=== PATIENT | male | born 1975 | race African-American/Black ===

== ENCOUNTER 2017-08-31 11:15 | Emergency (ER) | payer SELFPAY ==
[~2017-08-31] VITALS: Ht 175.3 cm; Wt 66.0 kg
[~2017-08-31 11:15] MED LIST: ZOFR4TAB3 SL
[2017-08-31 11:21] VITALS: BP 180/111; PULSE 74; RESP 22; TEMP 98; O2SAT 97
--- NOTE | 2017-08-31 11:29 | PD ---
Physical Exam Date Seen by Provider: Aug 31, 2017 Time Seen by Provider: 11:25 Narrative 42-year-old Afro-[place] male with history of sickle cell anemia presents to emergency Department from home with reported tonic-clonic seizure. Patient has no history of seizure before. Patient is complaining of chest and back pain. He is postictal. He denies any recent illness. He denies any drug use other than marijuana. He did state that he drank about a half a pint of alcohol last evening but normally doesn't drink every day. Pain is currently 8 out of 10. He complains of chest shortness of breath. He is currently on no medications. He has no known drug allergies. Data Data Last Documented VS Vital Signs Date Time Temp Pulse Resp B/P (MAP) Pulse Ox O2 Delivery O2 Flow Rate FiO2 08/31/17 11:21 98.0 74 22 180/111 (134) 97 MDM Medical Record Reviewed: Yes Supervised Visit with SATURNINO: Yes Narrative Course Patient appears postictal with vital signs are stable. Patient taken directly to the medical bed. Condition: Stable Calvin Benítez Aug 31, 2017 11:29
[2017-08-31 11:41] VITALS: BP 174/101; PULSE 84; RESP 20; O2SAT 98
--- NOTE | 2017-08-31 11:47 | PD ---
HPI Chief Complaint: Seizure Time Seen by Provider: 11:33 Travel History International Travel<30 days: No Contact w/Intl Traveler<30days: No Traveled to known affect area: No History of Present Illness HPI UNSURE TO WHAT OCCURRED. PATIENT'S NEPHEW BROUGHT HIM IN, APPARENTLY HE WAS HAVING SOME TONIC CLONIC ACTIVITY, WAS CONFUSED AND NOW IS BACK TO NORMAL UPON ARRIVING AT ER BED. PATIENT C/O "TIRED" AND "SORE CHEST AND BACK"...FEELS LIKE "SORE MUSCLES", AND RATES IT 2/, DENIES PCP: CAN'T RECALL BUT HIS OLD DOCTOR HAS RETIRED PMHX: SICKLE CELL SOCIAL HX: MARIJUANA USE, AND OCCASIONAL EOTH USE (DENIES DAILY ETOH USE) PFSH Past Medical History Anemia: Yes (sickle) Diminished Hearing: No Sickle Cell Disease: Yes ?: Not Past Surgical History Surgical History: No Previous Surgery Social History Alcohol Use: Yes (beer daily) Tobacco Use: Yes (2 PACKS DAILY X 20 YEARS) Substance Use: Yes (POT EVERY DAY) Allergies-Medications (Allergen,Severity, Reaction): Coded Allergies: No Known Allergies (Verified , 08/31/17) Reported Meds & Prescriptions Reported Meds & Active Scripts Active Review of Systems General / Constitutional: No: Fever Eyes: No: Visual changes HENT: No: Headaches Cardiovascular: Positive: Chest Pain or Discomfort Respiratory: No: Shortness of Breath Gastrointestinal: No: Abdominal Pain Genitourinary: No: Dysuria Musculoskeletal: Positive: Pain Skin: No Rash Neurologic: No: Weakness Psychiatric: No: Depression Endocrine: No: Polydipsia Hematologic/Lymphatic: No: Easy Bruising Physical Exam Narrative GENERAL: SKIN: Warm and dry. HEAD: Atraumatic. Normocephalic. EYES: Pupils equal and round. No scleral icterus. No injection or drainage. ENT: No nasal bleeding or discharge. Mucous membranes pink and moist. NECK: Trachea midline. No JVD. CARDIOVASCULAR: Regular rate and rhythm. RESPIRATORY: No accessory muscle use. Clear to auscultation. Breath sounds equal bilaterally. GASTROINTESTINAL: Abdomen soft, non-tender, nondistended. MUSCULOSKELETAL: Extremities without clubbing, cyanosis, or edema. No obvious deformities. NEUROLOGICAL: Awake and alert. No obvious cranial nerve deficits. Motor grossly within normal limits. Five out of 5 muscle strength in the arms and legs. Normal speech. PSYCHIATRIC: Appropriate mood and affect; insight and judgment normal. Data Data Last Documented VS Vital Signs Date Time Temp Pulse Resp B/P (MAP) Pulse Ox O2 Delivery O2 Flow Rate FiO2 08/31/17 11:41 84 20 174/101 (125) 98 Room Air 08/31/17 11:21 98.0 Orders Orders Electrocardiogram (08/31/17 11:38) Complete Blood Count With Diff (08/31/17 11:38) Comprehensive Metabolic Panel (08/31/17 11:38) Troponin I (08/31/17 11:38) B-Type Natriuretic Peptide (08/31/17 11:38) Prothrombin Time / Inr (Pt) (08/31/17 11:38) Act Partial Throm Time (Ptt) (08/31/17 11:38) Lipase (08/31/17 11:38) Urinalysis - C+S If Indicated (08/31/17 11:38) Thyroid Stimulating Hormone (08/31/17 11:38) Ct Brain W/O Iv Contrast(Rout) (08/31/17 11:38) Drug Screen, Random Urine (08/31/17 11:38) Alcohol (Ethanol) (08/31/17 11:38) Salicylates (Aspirin) (08/31/17 11:38) Tylenol (Acetaminophen) (08/31/17 11:38) Ldh Serum (08/31/17 13:16) Labs Laboratory Tests Test 08/31/17 11:45 08/31/17 12:44 White Blood Count 10.7 TH/MM3 Red Blood Count 5.87 MIL/MM3 Hemoglobin 18.8 GM/DL Hematocrit 54.1 % Mean Corpuscular Volume 92.2 FL Mean Corpuscular Hemoglobin 32.0 PG Mean Corpuscular Hemoglobin Concent 34.7 % Red Cell Distribution Width 13.5 % Platelet Count 256 TH/MM3 Mean Platelet Volume 8.9 FL Neutrophils (%) (Auto) 78.3 % Lymphocytes (%) (Auto) 13.5 % Monocytes (%) (Auto) 7.6 % Eosinophils (%) (Auto) 0.2 % Basophils (%) (Auto) 0.4 % Neutrophils # (Auto) 8.4 TH/MM3 Lymphocytes # (Auto) 1.4 TH/MM3 Monocytes # (Auto) 0.8 TH/MM3 Eosinophils # (Auto) 0.0 TH/MM3 Basophils # (Auto) 0.0 TH/MM3 CBC Comment DIFF FINAL Differential Comment Prothrombin Time 9.8 SEC Prothromb Time International Ratio 0.9 RATIO Activated Partial Thromboplast Time 30.5 SEC Blood Urea Nitrogen 14 MG/DL Creatinine 1.39 MG/DL Random Glucose 98 MG/DL Total Protein 9.5 GM/DL Albumin 4.9 GM/DL Calcium Level 9.8 MG/DL Alkaline Phosphatase 123 U/L Aspartate Amino Transf (AST/SGOT) 27 U/L Alanine Aminotransferase (ALT/SGPT) 31 U/L Total Bilirubin 1.4 MG/DL Sodium Level 137 MEQ/L Potassium Level 3.9 MEQ/L Chloride Level 106 MEQ/L Carbon Dioxide Level 21.7 MEQ/L Anion Gap 9 MEQ/L Estimat Glomerular Filtration Rate 69 ML/MIN Lactate Dehydrogenase 195 U/L Troponin I LESS THAN 0.02 NG/ML B-Type Natriuretic Peptide LESS THAN 2 PG/ML Lipase 73 U/L Thyroid Stimulating Hormone 3rd Gen 1.570 uIU/ML Salicylates Level 6.2 MG/DL Acetaminophen Level LESS THAN 2.0 MCG/ML Ethyl Alcohol Level LESS THAN 3 MG/DL Urine Color LIGHT-YELLOW Urine Turbidity CLEAR Urine pH 5.5 Urine Specific [place] 1.004 Urine Protein NEG mg/dL Urine Glucose (UA) NEG mg/dL Urine Ketones NEG mg/dL Urine Occult Blood NEG Urine Nitrite NEG Urine Bilirubin NEG Urine Urobilinogen LESS THAN 2.0 MG/DL Urine Leukocyte Esterase NEG Urine WBC LESS THAN 1 /hpf Urine Squamous Epithelial Cells 1 /hpf Microscopic Urinalysis Comment CULT NOT INDICATED Urine Opiates Screen NEG Urine Barbiturates Screen NEG Urine Amphetamines Screen NEG Urine Benzodiazepines Screen NEG Urine Cocaine Screen POS Urine Cannabinoids Screen NEG [facility] Medical Decision Making Medical Screen Exam Complete: Yes Emergency Medical Condition: Yes Medical Record Reviewed: Yes Interpretation(s) NSR 67, RV DELAY, LVH, Differential Diagnosis ?NEW ONSET SEIZURE V SYNCOPE V WITHDRAWAL SYNDROME V ELECTROLYTE ABNL V STEMI V PANCREATITIS V PNA V PTX Narrative Course PATIENT CT HEAD NEG FOR ICH, CXR NEG FOR PNA/PTX. EKG DID NOT SHOW ANY STEMI, AND FIRST SET OF TROPONIN WAS NEGATIVE....PATIENT STATES THAT HE HAS A HISTORY OF SICKLE CELL, I QUESTION THE VALIDITY OF THAT STATEMENT SINCE HEMOGLOBIN IS 18 , LDH WAS NORMAL, AND NO SCHISTIOCYTES OR ABNORMAL MICROSCOPIC EXAMINATION ON CBC. PATIENT WAS POSITIVE FOR COCAINE AND THAT MAY EXPLAIN PART OF HIS PRESENTING SYMPTOMS INCLUDING UP TO SEIZURE (IF IT ACTUALLY HAPPENED, THE MORE I ASKED NEPHEW THE LESS ACTUAL FIRST HAND WITNESSING I GOT) Diagnosis Primary Impression: COCAINE INDUCED SEIZURE Patient Instructions: Cocaine Abuse (ED), General Instructions Disposition: 01 DISCHARGE HOME Condition: Stable Leon Degroot MD Aug 31, 2017 11:47
[2017-08-31 12:17] LABS: AUTOMATED NEUTROPHIL # 8.4 TH/MM3 (1.8-7.7); BASOPHIL % 0.4 % (0.0-2.0); EOSINOPHIL % 0.2 % (0.0-4.0); HEMATOCRIT 54.1 % (39.0-51.0); HEMO FLAGS DIFF FINAL; LYMPH % 13.5 % (9.0-44.0); LYMPHOCYTE # 1.4 TH/MM3 (1.0-4.8); MEAN CELL VOLUME 92.2 FL (80.0-100.0); MEAN CORPUSCULAR HGB CONC 34.7 % (32.0-36.0); MONO % 7.6 % (0.0-8.0); NEUT % 78.3 % (16.0-70.0); PLATELET COUNT 256 TH/MM3 (150-450); RED BLOOD COUNT 5.87 MIL/MM3 (4.50-5.90); RED CELL DISTRIBUTION WIDTH 13.5 % (11.6-17.2); WHITE BLOOD COUNT 10.7 TH/MM3 (4.0-11.0)
[2017-08-31 12:24] LABS: APTT (PATIENT) 30.5 SEC (24.3-30.1); INTERNATIONAL NORMALIZED RATIO 0.9 RATIO; PROTHROMBIN TIME - PATIENT 9.8 SEC (9.8-11.6)
[2017-08-31 12:30] LABS: ALT (GPT) 31 U/L (12-78); ANION GAP 9 MEQ/L (5-15); AST (GOT) 27 U/L (15-37); BICARBONATE 21.7 MEQ/L (21.0-32.0); BLOOD UREA NITROGEN 14 MG/DL (7-18); CHLORIDE 106 MEQ/L (98-107); GLOMERULAR FILTRATION RATE 69 ML/MIN (>89); POTASSIUM 3.9 MEQ/L (3.5-5.1); SODIUM (NA) 137 MEQ/L (136-145)
--- NOTE | 2017-08-31 12:31 | RADRPT ---
EXAM DATE/TIME: 08/31/2017 12:13 [place] COMPARISON: No previous studies available for comparison. INDICATIONS : Seizure. Cephalgia. RADIATION DOSE: 56.35 CTDIvol (mGy) MEDICAL HISTORY : Sickle cell disease. SURGICAL HISTORY : None. ENCOUNTER: Initial ACUITY: 1 day PAIN SCALE: 4/10 LOCATION: Bilateral cranial TECHNIQUE: Multiple contiguous axial images were obtained of the head. Using automated exposure control and adj ustment of the mA and/or kV according to patient size, radiation dose was kept as low as reasonably a chievable to obtain optimal diagnostic quality images. DICOM format image data is available electro nically for review and comparison. FINDINGS: CEREBRUM: The ventricles are normal for age. No evidence of midline shift, mass lesion, hemorrhage or acute in farction. No extra-axial fluid collections are seen. POSTERIOR FOSSA: The cerebellum and brainstem are intact. The 4th ventricle is midline. The cerebellopontine angle i s unremarkable. EXTRACRANIAL: The visualized portion of the orbits is intact. SKULL: The calvaria is intact. No evidence of skull fracture. CONCLUSION: No acute disease. Ovi Thomas MD on August 31, 2017 at 12:28 Board Certified Radiologist. This report was verified electronically.
[2017-08-31 12:40] LABS: ALKALINE PHOSPHATASE 123 U/L (45-117); TOTAL BILIRUBIN ADULT 1.4 MG/DL (0.2-1.0)
[2017-08-31 12:41] LABS: ACETAMINOPHEN LESS THAN 2.0 MCG/ML (10.0-30.0); ALCOHOL LESS THAN 3 MG/DL (0-5)
[2017-08-31 13:16] LABS: BLOOD, URINE NEG (NEG); GLUCOSE,URINE NEG (NEG); KETONE, URINE NEG (NEG); NITRITE,URINE NEG (NEG); PH, URINE 5.5 (5.0-8.5); SQUAMOUS EPITHELIAL CELL URINE 1 /hpf (0-5); URINE COLOR LIGHT-YELLOW (YELLW/STRAW)
[2017-08-31 13:20] LABS: COMMENT (UR) CULT NOT INDICATED; CULTURE IF INDICATED CULT NOT INDICATED
[2017-08-31 14:05] VITALS: BP 152/78
--- NOTE | 2017-08-31 22:13 | EKG ---
Date Performed: 08/31/2017 Time Performed: 11:45:55 PTAGE: 42 years EKG: Sinus rhythm WITH SINUS ARRHYTHMIA POSSIBLE RIGHT VENTRICULAR CONDUCTION DELAY MODERATE VOLTAGE CRITERIA FOR LVH, CONSIDER NORMAL VARIANT BORDERLINE ECG NO PREVIOUS TRACING DOCTOR: Andrei Osborn Interpretating Date/Time 08/31/2017 22:12:15
== END 2017-08-31 14:09 | disposition home or self-care (01) ==
LOC: NEPE 11:15
DX: R56.9 Unspecified convulsions (principal); F14.90 Cocaine use, unspecified, uncomplicated; R07.9 Chest pain, unspecified; M54.9 Dorsalgia, unspecified; R06.02 Shortness of breath; D57.1 Sickle-cell disease without crisis; F17.200 Nicotine dependence, unspecified, uncomplicated; I49.8 Other specified cardiac arrhythmias
CPT/HCPCS: 70450; 80053; 80307; 81001; 83615; 83690; 83880; 84443; 84484; 85025; 85610; 85730; 93005

== ENCOUNTER 2017-09-21 10:36 | Emergency (ER) | payer OTHER ==
[~2017-09-21] VITALS: Ht 175.3 cm; Wt 62.0 kg
[2017-09-21 10:49] VITALS: BP 140/94; PULSE 85; RESP 16; O2SAT 98
[2017-09-21 11:00] VITALS: PULSE 71; O2SAT 98
--- NOTE | 2017-09-21 11:02 | PD ---
HPI Chief Complaint: OD/ Ingestion Time Seen by Provider: 10:46 Travel History International Travel<30 days: No Contact w/Intl Traveler<30days: No Traveled to known affect area: No History of Present Illness HPI The patient is a 42-year-old [place] male who presents to the emergency department via police for medical clearance after possible ingestion of crack cocaine. According to the police the patient stuffed a bag of cocaine in his back, when he spit it out, the bag was open and they're unsure if he ingested any crack cocaine. The patient is also unsure if he ingested any crack cocaine. The possible ingestion occurred at 10 AM. He denies any headache, chest pain, palpitations, shortness of breath, nausea, vomiting, or abdominal pain. He does state he has an abrasion on top of his head and his left lower extremity secondary to their rest. He denies any difficulty ambulating. He denies any loss of consciousness during the encounter. PFSH Past Medical History Anemia: Yes (sickle) Diminished Hearing: No Sickle Cell Disease: Yes Past Surgical History Tonsillectomy: Yes Social History Alcohol Use: Yes (" A COUPLE BEERS") Tobacco Use: Yes (1 PPD) Substance Use: Yes Allergies-Medications (Allergen,Severity, Reaction): Coded Allergies: No Known Allergies (Verified Allergy, Unknown, 09/21/17) Reported Meds & Prescriptions Reported Meds & Active Scripts Active Review of Systems Except as stated in HPI: all other systems reviewed are Neg General / Constitutional: No: Fever Eyes: No: Blurred Vision HENT: No: Headaches, Lightheadedness Cardiovascular: No: Chest Pain or Discomfort Respiratory: No: Shortness of Breath Gastrointestinal: No: Nausea, Vomiting, Abdominal Pain Musculoskeletal: No: Weakness Skin: Positive Other (abrasion to the top of the head and the left lower extremity) Neurologic: No: Dizziness Physical Exam Narrative GENERAL: Awake, alert, nontoxic-appearing 42-year-old male appears his stated age and is in no acute respiratory distress. SKIN: Focused skin assessment warm/dry. Abrasion noted to the forehead and several superficial abrasions to left lower extremity just inferior to the knee. HEAD: Superficial abrasion measuring 2 cm x 1.5 cm in the mid forehead. No active bleeding. EYES: Pupils equal and round. No scleral icterus. No injection or drainage. ENT: No nasal bleeding or discharge. Mucous membranes pink and moist. NECK: Trachea midline. No JVD. CARDIOVASCULAR: Regular rate and rhythm. No murmur appreciated. Heart rate in the 70s. RESPIRATORY: No accessory muscle use. Clear to auscultation. Breath sounds equal bilaterally. GASTROINTESTINAL: Abdomen soft, non-tender, nondistended. No rebound tenderness. MUSCULOSKELETAL: No obvious deformities. No clubbing. No cyanosis. No edema. Ambulates without difficulty. NEUROLOGICAL: Awake and alert. No obvious cranial nerve deficits. Motor grossly within normal limits. Normal speech. Nonfocal. Oriented 4. PSYCHIATRIC: Appropriate mood and affect; insight and judgment normal. Data Data Last Documented VS Vital Signs Date Time Temp Pulse Resp B/P (MAP) Pulse Ox O2 Delivery O2 Flow Rate FiO2 09/21/17 11:00 71 98 Room Air 09/21/17 10:49 16 140/94 (109) Orders Orders Drug Screen, Random Urine (09/21/17 10:56) Ecg Monitoring (09/21/17 10:56) Oximetry (09/21/17 10:56) Tetanus/Diphtheria Tox Adult (Tetanus/Di (09/21/17 12:00) Ed Discharge Order (09/21/17 13:05) Labs Laboratory Tests Test 09/21/17 11:45 Urine Opiates Screen NEG Urine Barbiturates Screen NEG Urine Amphetamines Screen NEG Urine Benzodiazepines Screen NEG Urine Cocaine Screen POS Urine Cannabinoids Screen POS [facility] Medical Decision Making Medical Screen Exam Complete: Yes Emergency Medical Condition: Yes Medical Record Reviewed: Yes Interpretation(s) Laboratory Tests Test 09/21/17 11:45 Urine Opiates Screen NEG Urine Barbiturates Screen NEG Urine Amphetamines Screen NEG Urine Benzodiazepines Screen NEG Urine Cocaine Screen POS Urine Cannabinoids Screen POS Differential Diagnosis Differential diagnosis includes cocaine toxicity, crack cocaine ingestion, some pathognomonic crisis, medical clearance, abrasion, contusion. Narrative Course The patient was placed on cardiac telemetry monitoring and continuous pulse oximetry monitoring. Drug screen was ordered. The patient was monitored for any signs of sympathomimetic crisis or toxicity. Tox screen was positive for cocaine and cannabinoids. The patient was monitored on telemetry monitoring, his heart rate varied between the 60s and 70s. Blood pressure was 140/94, he had no headache or other signs of sympathomimetic crisis or cocaine toxicity. The patient's heart rate maintained in the 60s and 70s, blood pressure was normal. The patient was on his phone, there is no evidence of distress. The patient is stable for outpatient follow-up. The patient will be discharged in police custody. Diagnosis Primary Impression: Drug ingestion Qualified Codes: T50.904A - Poisoning by unspecified drugs, medicaments and biological substances, undetermined, initial encounter Additional Impressions: Abrasion Medical clearance for incarceration Patient Instructions: General Instructions Additional Instructions: Follow-up with your primary physician. Wound care instructions. Return if symptoms worsen or progress. Med/Other Pt SpecificInfo: No Change to Meds Disposition: 01 DISCHARGE HOME (discharge in police custody) Condition: Stable Jorge Calvert MD Sep 21, 2017 11:02
[2017-09-21] MEDS ORDERED: TETANUS/DIPHTHERIA TOXOID ADULT 0.5 ML VIAL IM ONE (12:00)
== END 2017-09-21 13:37 | disposition home or self-care (01) ==
LOC: NEPD 10:36
DX: T40.5X1A Poisoning by cocaine, accidental (unintentional), initial encounter (principal); S00.81XA Abrasion of other part of head, initial encounter; S80.812A Abrasion, left lower leg, initial encounter; D57.1 Sickle-cell disease without crisis; F17.200 Nicotine dependence, unspecified, uncomplicated; X58.XXXA Exposure to other specified factors, initial encounter; Z23 Encounter for immunization
CPT/HCPCS: 80307; 90471; 90714